=== PATIENT | male | born 1940 | race Caucasian/White ===

== ENCOUNTER 2021-07-29 12:45 | Inpatient (IN) | payer MEDICARE ==
[~2021-07-29] VITALS: Ht 165.1 cm; Wt 86.6 kg
[2021-07-29] MEDS ORDERED: DOCU100C36 PO (13:10)
[2021-07-29] MEDS ORDERED: ALBU8.5H8 IH (13:10)
[2021-07-29] MEDS ORDERED: METO25TA6 PO (13:10)
[2021-07-29] MEDS ORDERED: FURO40TA5 PO (13:10)
[2021-07-29] MEDS ORDERED: slow mag (13:10)
[2021-07-29] MEDS ORDERED: LEVO150T8 PO (13:10)
[2021-07-29] MEDS ORDERED: TRAM50TA2 PO (13:10)
[2021-07-29] MEDS ORDERED: LANS30CA56 PO (13:10)
[2021-07-29] MEDS ORDERED: FLUT1DIS28 IH (13:10)
[2021-07-29] MEDS ORDERED: POTA10CA43 PO (13:10)
[2021-07-29] MEDS ORDERED: DIAZ5TAB4 PO (13:10)
[2021-07-29] MEDS ORDERED: METO2.5T2 PO (13:10)
[2021-07-29] MEDS ORDERED: FURO80TA3 PO (13:10)
[2021-07-29] MEDS ORDERED: CALC600T35 PO (13:10)
[2021-07-29] MEDS ORDERED: ASPI81TA31 PO (13:10)
[2021-07-29] MEDS ORDERED: ROSU40TA PO (13:10)
[2021-07-29 13:20] LABS: HEMATOCRIT 41.2 % (36.7-47.1); MEAN CORPUSCULAR HEMOGLOBIN 28.5 uug (23.8-33.4); MEAN CORPUSCULAR VOLUME 87.9 fL (73.0-96.2); PLATELET COUNT (AUTO) 163 K/uL (152-348)
[2021-07-29 13:25] LABS: CARBON DIOXIDE 31 mmol/L (21-32); CHLORIDE 100 mmol/L (98-107); CREATININE 1.1 mg/dL (0.6-1.3); GLUCOSE 120 mg/dL (74-106); POTASSIUM 4.3 mmol/L (3.5-5.1); UREA NITROGEN, BLOOD 22 mg/dL (7-18)
[2021-07-29 13:38] LABS: ALANINE AMINOTRANSFERASE 35 U/L (16-63); ALKALINE PHOSPHATASE 110 U/L (50-136); ASPARTATE AMINOTRANSFERASE 31 U/L (15-37); BILIRUBIN,DIRECT 0.1 mg/dL (0.0-0.2); BILIRUBIN,TOTAL 0.4 mg/dL (0.2-1.0); TOTAL PROTEIN, SERUM 7.3 g/dL (6.4-8.2)
[2021-07-29] MEDS ORDERED: ALBUTEROL SULFATE 2.5 MG/3 ML NEBU NEB ONE (13:45)
[2021-07-29] MEDS ORDERED: IPRATROPIUM BROMIDE 0.5 MG/2.5 ML NEBU NEB ONE (13:45)
[2021-07-29] MEDS ORDERED: FUROSEMIDE 40 MG/4 ML VIAL IV ONE ×3 (13:45→21:00)
[2021-07-29] MEDS ORDERED: FUROSEMIDE 20 MG/2 ML VIAL ONE (13:46)
[2021-07-29] MEDS ORDERED: FUROSEMIDE 40 MG/4 ML VIAL ONE (13:46)
[2021-07-29] MEDS ORDERED: ALBUTEROL SULFATE 2.5 MG/3 ML NEBU ONE (13:49)
[2021-07-29] MEDS ORDERED: IPRATROPIUM BROMIDE 0.5 MG/2.5 ML NEBU ONE (13:49)
[2021-07-29] MEDS ORDERED: ALBUTEROL SULFATE 8 GM HFA.AER.AD IH PRN (14:00)
[2021-07-29] MEDS ORDERED: ONDANSETRON 4 MG/2 ML VIAL IV PRN ×2 (14:15→20:30)
[2021-07-29] MEDS ORDERED: REMEDY ESSENTIAL ZINC PASTE 113 GM TP PRN ×2 (14:15→20:30)
[2021-07-29] MEDS ORDERED: ACETAMINOPHEN 325 MG TABLET PO PRN ×2 (14:15→19:45)
[2021-07-29] MEDS ORDERED: MAGNESIUM HYDROXIDE 30 ML LIQUID UDC PO PRN ×2 (14:15→20:30)
--- NOTE | 2021-07-29 15:00 | NUR ---
Patient states she feels slightly short of breath. States he has CHF. Placed on a monitor.
--- NOTE | 2021-07-29 15:01 | NUR ---
Patient has urinated multiple times. RT tx done. Patient states she feels a bit better. He is aware of pending admission. Hand off report given toAline from Carlos CHAND
--- NOTE | 2021-07-29 15:15 | NUR ---
Admitted patient to telemetry unit with the diagnosis of acute CHF exacerbation. AO x 4. Sinus rhythm on the monitor with heart rate in the 70s. No complaints of chest pain. On room air saturating 98%. Blood pressure within normal. Patient is able to ambulate to restroom. Presents with bilateral leg wounds. Safety precautions in place. Admission orders carried out. Will continue to monitor patient.
[2021-07-29 15:25] VITALS: BP 132/65
[2021-07-29] MEDS: TRAMADOL HCL 50 MG TABLET PO PRN (16:48)
--- NOTE | 2021-07-29 16:57 | NUR ---
Nirmala German made aware of patient's troponin level of 118. No new orders noted at this time.
[2021-07-29] MEDS ORDERED: TEMAZEPAM 15 MG CAPSULE PO PRN ×2 (18:45→20:30)
[2021-07-29] MEDS ORDERED: ALBUTEROL SULFATE 2.5 MG/3 ML NEBU NEB PRN (20:15)
[2021-07-29 20:40] VITALS: BP 143/76
[2021-07-29] MEDS: METOPROLOL TARTRATE 25 MG TABLET PO SCH (20:49)
[2021-07-29] MEDS ORDERED: FLUTICASONE/SALMETEROL 250/50 INHALER IH SCH (21:00)
[2021-07-29] MEDS ORDERED: METOPROLOL TARTRATE 25 MG TABLET PO SCH (21:00)
--- NOTE | 2021-07-29 21:33 | NUR ---
Received Troponin result 167 .N.P Nirmala notified with new order received.
[2021-07-29] MEDS ORDERED: ASPIRIN 81 MG TAB.CHEW PO ONE (22:00)
--- NOTE | 2021-07-29 22:22 | NUR ---
EKG result received.Patient denies chest pain. No s/s of distress noted.N.P Nirmala notified.Aspirin given as ordered.Call light with in reach. Will continue to monitor.
[2021-07-30 00:04] VITALS: BP 114/58
[2021-07-30] MEDS: TRAMADOL HCL 50 MG TABLET PO PRN ×3 (02:01→18:34)
--- NOTE | 2021-07-30 03:01 | NUR ---
Received troponin result 185 .Patient asymptomatic. Relayed to . CHINYERE at this time. Will continue to monitor.
[2021-07-30 04:00] VITALS: BP 114/83
[2021-07-30 06:01] LABS: HEMATOCRIT 40.8 % (36.7-47.1); MEAN CORPUSCULAR HEMOGLOBIN 29.1 uug (23.8-33.4); PLATELET COUNT (AUTO) 168 K/uL (152-348)
[2021-07-30 06:13] LABS: CREATININE 1.1 mg/dL (0.6-1.3); MAGNESIUM 2.6 mg/dL (1.8-2.4); PHOSPHOROUS 3.9 mg/dL (2.5-4.9); POTASSIUM 3.7 mmol/L (3.5-5.1)
[2021-07-30] MEDS: LEVOTHYROXINE SODIUM 150 MCG TABLET PO SCH (06:17)
[2021-07-30] MEDS ORDERED: DIAZEPAM 5 MG TABLET PO SCH (09:00)
[2021-07-30] MEDS ORDERED: Medication Not On Formulary EA (Rosuvastatin Calcium (Crestor) 40 MG) PO SCH (09:00)
[2021-07-30] MEDS ORDERED: ASPIRIN 81 MG TAB.CHEW PO SCH (09:00)
[2021-07-30] MEDS ORDERED: LEVOTHYROXINE SODIUM 150 MCG TABLET PO SCH (09:00)
[2021-07-30] MEDS ORDERED: DOCUSATE SODIUM 100 MG CAPSULE PO SCH (09:00)
[2021-07-30] MEDS ORDERED: LANSOPRAZOLE 15 MG PO SCH (09:00)
[2021-07-30] MEDS ORDERED: CALCIUM CARBONATE 600 MG TABLET PO SCH (09:00)
[2021-07-30] MEDS: CALCIUM CARBONATE 600 MG TABLET PO SCH (09:20)
[2021-07-30] MEDS: ASPIRIN 81 MG TAB.CHEW PO SCH (09:20)
[2021-07-30] MEDS: DIAZEPAM 2 MG TABLET PO SCH (09:20)
[2021-07-30] MEDS: DOCUSATE SODIUM 100 MG CAPSULE PO SCH (09:20)
[2021-07-30] MEDS: METOPROLOL TARTRATE 25 MG TABLET PO SCH ×2 (09:20→20:37)
[2021-07-30] MEDS: FLUTICASONE/VILANTEROL 1 EACH BLST.W.DEV INH SCH (09:26)
[2021-07-30] MEDS ORDERED: ATORVASTATIN 10 MG TABLET PO SCH ×2 (10:00→21:00)
[2021-07-30] MEDS: FUROSEMIDE 40 MG/4 ML VIAL IV SCH ×2 (10:59→15:18)
[2021-07-30] MEDS: POTASSIUM CHLORIDE 20 MEQ TAB.PRT.SR PO SCH ×3 (10:59→13:26)
[2021-07-30] MEDS: ENOXAPARIN SODIUM 40 MG/0.4 ML DISP.SYRIN SQ SCH (11:03)
[2021-07-30 11:06] VITALS: BP 121/65
--- NOTE | 2021-07-30 13:45 | NUR ---
Patient sustained fall on his way out of the bathroom. Patient found sitting on floor. Patient verbalize that he is not injured. Patient assisted to bed. Vital signs within normal. No change in LOC. MD notified.
[2021-07-30 15:23] VITALS: BP 128/71
--- NOTE | 2021-07-30 19:00 | NUR ---
Patient stable throughout shift. Sinus rhythm on the monitor with PVCs and PACs. Saturating 98% on room air. Patient's at bedside. Patient denies chest pain. No evidence of respiratory distress. Will endorse to oncoming shift. Safety precautions in place.
--- NOTE | 2021-07-30 19:40 | NUR ---
Received pt sitting up on chair with by bedside. AOx4. Denies chest pain at this moment. No SOB or congestion noted. IV in [place] intact and patent. Ice pack given for back pain. Call lights within reach. Safety measures initiated.
[2021-07-30 20:59] VITALS: BP 132/53
[2021-07-31] MEDS: TRAMADOL HCL 50 MG TABLET PO PRN ×2 (00:12→11:36)
[2021-07-31 00:31] VITALS: BP 112/55
[2021-07-31 04:00] VITALS: BP 116/55
[2021-07-31 05:58] LABS: HEMATOCRIT 42.2 % (36.7-47.1); MEAN CORPUSCULAR HEMOGLOBIN 28.8 uug (23.8-33.4); MEAN CORPUSCULAR VOLUME 86.8 fL (73.0-96.2); PLATELET COUNT (AUTO) 167 K/uL (152-348)
[2021-07-31] MEDS: LEVOTHYROXINE SODIUM 150 MCG TABLET PO SCH (06:00)
[2021-07-31 06:10] LABS: ALANINE AMINOTRANSFERASE 32 U/L (16-63); ALKALINE PHOSPHATASE 99 U/L (50-136); ASPARTATE AMINOTRANSFERASE 32 U/L (15-37); BILIRUBIN,TOTAL 0.6 mg/dL (0.2-1.0); CARBON DIOXIDE 33 mmol/L (21-32); CHLORIDE 99 mmol/L (98-107); CREATININE 1.1 mg/dL (0.6-1.3); GLUCOSE 121 mg/dL (74-106); MAGNESIUM 2.5 mg/dL (1.8-2.4); PHOSPHOROUS 4.5 mg/dL (2.5-4.9); POTASSIUM 3.7 mmol/L (3.5-5.1); TOTAL PROTEIN, SERUM 7.4 g/dL (6.4-8.2); UREA NITROGEN, BLOOD 25 mg/dL (7-18)
--- NOTE | 2021-07-31 06:15 | NUR ---
Pt slept comfortably on chair. AOx4. On room air saturating at 95%. Sinus bradycardia with PVC's and HR 54-56 bpm. No signs of acute distress. Denies chest pain. No SOB noted. Tramadol given for pain. NPO at [address] Angio at H. Call light and belongings within reach. Safety measures maintained. Will endorse to am shift.
[2021-07-31] MEDS: DIAZEPAM 2 MG TABLET PO SCH (08:15)
[2021-07-31] MEDS: ASPIRIN 81 MG TAB.CHEW PO SCH (08:15)
[2021-07-31] MEDS: CALCIUM CARBONATE 600 MG TABLET PO SCH (08:15)
[2021-07-31] MEDS: DOCUSATE SODIUM 100 MG CAPSULE PO SCH (08:15)
[2021-07-31] MEDS: METOPROLOL TARTRATE 25 MG TABLET PO SCH (08:16)
[2021-07-31] MEDS: ENOXAPARIN SODIUM 40 MG/0.4 ML DISP.SYRIN SQ SCH (08:17)
[2021-07-31] MEDS: FLUTICASONE/VILANTEROL 1 EACH BLST.W.DEV INH SCH (08:21)
[2021-07-31 11:03] VITALS: BP 118/53
[2021-07-31] MEDS ORDERED: ASPI81TA31 PO (11:39)
[2021-07-31] MEDS ORDERED: FLUT1BLS INH (11:39)
[2021-07-31] MEDS ORDERED: METO25TA6 PO (11:39)
[2021-07-31] MEDS ORDERED: LEVO150T PO (11:39)
[2021-07-31] MEDS ORDERED: ALBU2.5V7 NEB (11:39)
--- NOTE | 2021-07-31 14:51 | NUR ---
Pt.was d/c home,denies any sob/or pain.went home with .No s/s of distress.
== END 2021-07-31 14:55 | disposition home or self-care (01) | DRG 280 ==
LOC: ER 12:47 → TELE3 14:32 → MEDSURG3 07-31 10:05
PROVIDERS: ADMIT Nurse Practitioner Acute Care; ATTEND Nurse Practitioner Acute Care
DX: I11.0 Hypertensive heart disease with heart failure (principal); I50.33 Acute on chronic diastolic (congestive) heart failure; I21.A1 Myocardial infarction type 2; J96.00 Acute respiratory failure, unspecified whether with hypoxia or hypercapnia; J44.9 Chronic obstructive pulmonary disease, unspecified; N40.0 Benign prostatic hyperplasia without lower urinary tract symptoms; G89.29 Other chronic pain; E66.9 Obesity, unspecified; Z68.38 Body mass index [BMI] 38.0-38.9, adult; M54.50 Low back pain, unspecified; R79.89 Other specified abnormal findings of blood chemistry; I08.0 Rheumatic disorders of both mitral and aortic valves; E03.9 Hypothyroidism, unspecified; M48.00 Spinal stenosis, site unspecified; E78.5 Hyperlipidemia, unspecified; I87.8 Other specified disorders of veins; Z79.890 Hormone replacement therapy; Z95.5 Presence of coronary angioplasty implant and graft; Z71.3 Dietary counseling and surveillance; Z87.898 Personal history of other specified conditions; Z79.899 Other long term (current) drug therapy; Z79.82 Long term (current) use of aspirin; Z88.0 Allergy status to penicillin
CPT/HCPCS: 36415; 71045; 83735; 84100; 84484; 85025; 85730; 93005; 93307; A4663; G0378; J1650; J1940; J3590

== ENCOUNTER 2023-07-04 13:26 | Inpatient (IN) | payer MEDICARE ==
[~2023-07-04] VITALS: Ht 167.6 cm; Wt 93.9 kg
[~2023-07-04 13:26] MED LIST: ALBU2.5V7 NEB; ALBU8.5H8 IH; ASPI81TA31 PO; CALC600T35 PO; DIAZ5TAB4 PO; DOCU100C36 PO; FLUT1BLS INH; FLUT1DIS28 IH; FURO40TA5 PO; FURO80TA3 PO; LANS30CA56 PO; LEVO150T PO; LEVO150T8 PO; METO2.5T2 PO; METO25TA6 PO; POTA10CA43 PO; ROSU40TA PO; TRAM50TA2 PO; slow mag
[2023-07-04] MEDS ORDERED: REMEDY ESSENTIAL ZINC PASTE 113 GM TOP PRN (17:45)
[2023-07-04 20:00] VITALS: BP 100/49; TEMP 100.1; O2SAT 98
[2023-07-04] MEDS ORDERED: ALPR0.5T8 PO (20:50)
[2023-07-04] MEDS ORDERED: FAMO10TA41 PO (20:50)
[2023-07-04] MEDS ORDERED: BUDE0.5A4 IH (20:50)
[2023-07-04] MEDS ORDERED: FURO80TA87 PO (20:50)
[2023-07-04] MEDS ORDERED: MELA5TAB20 PO (20:50)
[2023-07-04] MEDS ORDERED: ALBU2.5V38 IH (20:50)
[2023-07-04] MEDS ORDERED: ARFO15VI IH (20:50)
[2023-07-04] MEDS ORDERED: ENOX40DI SQ (20:50)
[2023-07-04] MEDS ORDERED: POLY17PO4 PO (20:50)
[2023-07-04] MEDS ORDERED: ONDA4AMP IJ (20:50)
[2023-07-04] MEDS ORDERED: SENN-18 PO (20:50)
[2023-07-04] MEDS ORDERED: ESCI10TA PO (20:50)
[2023-07-04] MEDS ORDERED: POTA-88 PO (20:50)
[2023-07-04] MEDS ORDERED: DOCU250C14 PO (20:50)
[2023-07-04] MEDS ORDERED: ACET325T53 PO (20:50)
[2023-07-04] MEDS ORDERED: ROSU20TA2 PO (20:50)
[2023-07-04] MEDS ORDERED: OXYC5TAB3 PO (20:50)
[2023-07-05 06:00] VITALS: BP 125/54; TEMP 98; O2SAT 97
[2023-07-05 07:49] LABS: BASOPHILS # (AUTO) 0.1 K/UL (0.0-0.2); BASOPHILS % (AUTO) 0.6 % (0.0-2.0); EOSINOPHILS # (AUTO) 0.1 K/uL (0.0-0.7); EOSINOPHILS % (AUTO) 0.9 % (0.0-7.0); HEMATOCRIT 23.4 % (36.7-47.1); HEMOGLOBIN 7.7 g/dL (12.5-16.3); LYMPHOCYTES # (AUTO) 3.9 K/uL (0.8-4.8); LYMPHOCYTES % (AUTO) 25.2 % (20.5-51.5); MEAN CORPUSCULAR HEMOGLOBIN 28.5 uug (23.8-33.4); MEAN CORPUSCULAR HGB CONC 33 g/dL (32.5-36.3); MEAN CORPUSCULAR VOLUME 86.5 fL (73.0-96.2); MONOCYTES # (AUTO) 1.3 K/uL (0.1-1.30); MONOCYTES % (AUTO) 8.7 % (0.0-11.0); NEUTROPHILS # (AUTO) 9.9 K/uL (1.8-8.9); NEUTROPHILS % (AUTO) 64.6 % (38.5-71.5); PLATELET COUNT (AUTO) 210 K/uL (152-348); RED BLOOD CELL COUNT(AUTO) 2.71 MIL/uL (4.06-5.63); WHITE BLOOD COUNT (AUTO) 15.4 K/uL (3.6-10.2)
[2023-07-05 07:56] LABS: DIFFERENTIAL COMMENT 1
[2023-07-05 08:09] LABS: CALCIUM 8.9 mg/dL (8.5-10.1); CARBON DIOXIDE 32 mmol/L (21-32); CHLORIDE 100 mmol/L (98-107); CREATININE 0.9 mg/dL (0.6-1.3); GLUCOSE 138 mg/dL (74-106); MAGNESIUM 2.6 mg/dL (1.8-2.4); PHOSPHOROUS 2.4 mg/dL (2.5-4.9); POTASSIUM 4.4 mmol/L (3.5-5.1); SODIUM SERUM 134 mmol/L (136-145); UREA NITROGEN, BLOOD 20 mg/dL (7-18)
[2023-07-05] MEDS ORDERED: ENOX30DI5 SQ (10:12)
[2023-07-05] MEDS ORDERED: FAMO20TA8 PO (10:16)
[2023-07-05] MEDS ORDERED: ONDANSETRON 4 MG/2 ML VIAL IV PRN (10:30)
[2023-07-05] MEDS ORDERED: MELATONIN 3 MG TABLET PO PRN (10:30)
[2023-07-05] MEDS ORDERED: ALBUTEROL SULFATE 2.5 MG/3 ML NEBU IH PRN (10:30)
[2023-07-05] MEDS: FUROSEMIDE 40 MG TABLET PO SCH (11:40)
[2023-07-05] MEDS: METOPROLOL TARTRATE 25 MG TABLET PO SCH (11:41)
[2023-07-05] MEDS: ASPIRIN 81 MG TAB.CHEW PO SCH (11:41)
[2023-07-05] MEDS: ESCITALOPRAM OXALATE 10 MG TABLET PO SCH (11:41)
[2023-07-05] MEDS: DOCUSATE SODIUM 250 MG CAPSULE PO SCH (11:41)
[2023-07-05] MEDS: ENOXAPARIN SODIUM 30 MG/0.3 ML DISP.SYRIN SQ SCH (11:44)
[2023-07-05] MEDS: ACETAMINOPHEN 325 MG TABLET PO PRN (12:33)
[2023-07-05] MEDS: FLUTICASONE/VILANTEROL 1 EACH BLST.W.DEV IH SCH (13:02)
[2023-07-05 14:35] VITALS: O2SAT 97
[2023-07-05 16:00] VITALS: BP 113/55; TEMP 98.3; O2SAT 97
[2023-07-05] MEDS: NEUTRA PHOS PACKET PO ONE (16:22)
[2023-07-05 16:56] LABS: *BILIRUBIN,URIN NEGATIVE (NEGATIVE); *BLOOD, URINE NEGATIVE (NEGATIVE); *CLARITY,URINE CLEAR (CLEAR); *COLOR,URINE YELLOW (YELLOW); *KETONES,URINE NEGATIVE (NEGATIVE); *PROTEIN,URINE NEGATIVE (NEGATIVE); *UROBILINOGEN,URINE 0.2 E.U./dl (NORMAL); LEUKOCYTE ESTERASE ,URINE TRACE (NEGATIVE); NITRITE, URINE NEGATIVE (NEGATIVE); UGLUCOSE NEGATIVE (NEGATIVE)
[2023-07-05] MEDS ORDERED: FLUTICASONE/SALMETEROL 250/50 INHALER IH SCH (17:00)
[2023-07-05 17:21] LABS: RBC,URINE 0-3 /HPF (0-3)
[2023-07-05 17:22] LABS: BACTERIA,URINE MODERATE /HPF (NONE SEEN); SQUAMOUS EPITHELIAL CELL,UR FEW /HPF (NONE SEEN); YEAST,URINE BUDDING YEAST /HPF (NONE SEEN)
[2023-07-05 20:00] VITALS: BP 104/45; TEMP 98.6; O2SAT 96
[2023-07-05] MEDS: ATORVASTATIN 40 MG TABLET PO SCH (20:46)
[2023-07-05] MEDS: SENNOSIDES 1 TABLET PO SCH (20:46)
[2023-07-05] MEDS ORDERED: Medication Not On Formulary EA (Rosuvastatin Calcium (Crestor) 20 MG) PO SCH (21:00)
[2023-07-05] MEDS ORDERED: BUDESONIDE 0.5 MG/2 ML NEBU IH SCH (21:00)
[2023-07-05 23:16] VITALS: O2SAT 97
[2023-07-06] MEDS: ALPRAZOLAM 0.5 MG TABLET PO PRN (00:27)
[2023-07-06 06:00] VITALS: BP 143/61; TEMP 97.7; O2SAT 99
[2023-07-06] MEDS: FAMOTIDINE 20 MG TABLET PO SCH (06:41)
[2023-07-06] MEDS: LEVOTHYROXINE SODIUM 150 MCG TABLET PO SCH (06:41)
[2023-07-06] MEDS: OXYCODONE HCL 5 MG TABLET PO PRN (06:46)
[2023-07-06 07:58] LABS: BASOPHILS # (AUTO) 0.1 K/UL (0.0-0.2); BASOPHILS % (AUTO) 0.6 % (0.0-2.0); EOSINOPHILS # (AUTO) 0.3 K/uL (0.0-0.7); EOSINOPHILS % (AUTO) 1.8 % (0.0-7.0); HEMATOCRIT 24.9 % (36.7-47.1); HEMOGLOBIN 8.2 g/dL (12.5-16.3); LYMPHOCYTES % (AUTO) 25.8 % (20.5-51.5); MEAN CORPUSCULAR HEMOGLOBIN 28.9 uug (23.8-33.4); MEAN CORPUSCULAR HGB CONC 33 g/dL (32.5-36.3); MEAN CORPUSCULAR VOLUME 87.6 fL (73.0-96.2); MONOCYTES # (AUTO) 1.1 K/uL (0.1-1.30); MONOCYTES % (AUTO) 7.3 % (0.0-11.0); NEUTROPHILS # (AUTO) 9.9 K/uL (1.8-8.9); NEUTROPHILS % (AUTO) 64.5 % (38.5-71.5); PLATELET COUNT (AUTO) 217 K/uL (152-348); RED BLOOD CELL COUNT(AUTO) 2.85 MIL/uL (4.06-5.63); RED CELL DISTRIBUTION WIDTH 19.2 % (12.1-16.2); WHITE BLOOD COUNT (AUTO) 15.4 K/uL (3.6-10.2)
[2023-07-06 08:00] VITALS: BP 145/64; TEMP 98.4; O2SAT 96
[2023-07-06 08:16] LABS: DIFFERENTIAL COMMENT 1
[2023-07-06 08:42] LABS: IRON, SERUM 30 ug/dL (50-175)
[2023-07-06] MEDS: MIRALAX 17 GM POWD.PACK PO SCH (09:00)
[2023-07-06 09:34] LABS: CALCIUM 8.8 mg/dL (8.5-10.1); CARBON DIOXIDE 32 mmol/L (21-32); CHLORIDE 101 mmol/L (98-107); CREATININE 0.8 mg/dL (0.6-1.3); FERRITIN 289 ng/mL (26-388); GLUCOSE 121 mg/dL (74-106); MAGNESIUM 2.5 mg/dL (1.8-2.4); PHOSPHOROUS 2.6 mg/dL (2.5-4.9); POTASSIUM 3.7 mmol/L (3.5-5.1); SODIUM SERUM 136 mmol/L (136-145); UREA NITROGEN, BLOOD 23 mg/dL (7-18)
[2023-07-06] MEDS ORDERED: FLUTICASONE/VILANTEROL 1 EACH BLST.W.DEV IH SCH (12:00)
[2023-07-06] MEDS: CIPROFLOXACIN HCL 250 MG TABLET PO SCH (14:30)
[2023-07-06 16:30] VITALS: BP 137/50; TEMP 98.9; O2SAT 97
[2023-07-06] MEDS: SOD FERRIC GLUC COMPLX/SUCROSE 125 MG in IV NORMAL SALINE 100 ML IV SCH (16:34)
[2023-07-06 17:31] VITALS: BP 110/78; TEMP 98.9; O2SAT 97
[2023-07-06 20:00] VITALS: BP 112/56; TEMP 98; O2SAT 96
[2023-07-07 06:00] VITALS: BP 131/65; TEMP 98.2; O2SAT 98
[2023-07-07 07:12] LABS: BASOPHILS # (AUTO) 0.3 K/UL (0.0-0.2); BASOPHILS % (AUTO) 1.7 % (0.0-2.0); EOSINOPHILS # (AUTO) 0.2 K/uL (0.0-0.7); EOSINOPHILS % (AUTO) 1.4 % (0.0-7.0); HEMATOCRIT 23.7 % (36.7-47.1); HEMOGLOBIN 7.9 g/dL (12.5-16.3); LYMPHOCYTES # (AUTO) 4.8 K/uL (0.8-4.8); LYMPHOCYTES % (AUTO) 27.8 % (20.5-51.5); MEAN CORPUSCULAR HGB CONC 33 g/dL (32.5-36.3); MEAN CORPUSCULAR VOLUME 87.3 fL (73.0-96.2); MONOCYTES # (AUTO) 1.2 K/uL (0.1-1.30); MONOCYTES % (AUTO) 7.1 % (0.0-11.0); NEUTROPHILS # (AUTO) 10.8 K/uL (1.8-8.9); PLATELET COUNT (AUTO) 237 K/uL (152-348); RED BLOOD CELL COUNT(AUTO) 2.72 MIL/uL (4.06-5.63); RED CELL DISTRIBUTION WIDTH 18.9 % (12.1-16.2); WHITE BLOOD COUNT (AUTO) 17.4 K/uL (3.6-10.2)
[2023-07-07 07:25] LABS: DIFFERENTIAL COMMENT 1
[2023-07-07 08:00] VITALS: BP 120/59; TEMP 98.3; O2SAT 98
[2023-07-07 08:03] LABS: CALCIUM 8.7 mg/dL (8.5-10.1); CARBON DIOXIDE 29 mmol/L (21-32); CHLORIDE 100 mmol/L (98-107); CREATININE 0.8 mg/dL (0.6-1.3); GLUCOSE 116 mg/dL (74-106); MAGNESIUM 2.4 mg/dL (1.8-2.4); PHOSPHOROUS 2.4 mg/dL (2.5-4.9); SODIUM SERUM 134 mmol/L (136-145); UREA NITROGEN, BLOOD 15 mg/dL (7-18)
[2023-07-07 08:04] LABS: POTASSIUM 4.4 mmol/L (3.5-5.1)
[2023-07-07] MEDS: NEUTRA PHOS PACKET PO ONE (16:08)
[2023-07-07 16:09] VITALS: BP 120/50; TEMP 98.6; O2SAT 95
[2023-07-07 20:15] VITALS: BP 140/53; TEMP 98.8
[2023-07-08 05:57] VITALS: BP 132/62; TEMP 98
[2023-07-08 07:04] LABS: BASOPHILS # (AUTO) 0.1 K/UL (0.0-0.2); BASOPHILS % (AUTO) 0.7 % (0.0-2.0); EOSINOPHILS # (AUTO) 0.4 K/uL (0.0-0.7); EOSINOPHILS % (AUTO) 2.4 % (0.0-7.0); HEMATOCRIT 24.1 % (36.7-47.1); LYMPHOCYTES # (AUTO) 4.8 K/uL (0.8-4.8); LYMPHOCYTES % (AUTO) 29.5 % (20.5-51.5); MEAN CORPUSCULAR HEMOGLOBIN 28.9 uug (23.8-33.4); MEAN CORPUSCULAR HGB CONC 33 g/dL (32.5-36.3); MEAN CORPUSCULAR VOLUME 87.1 fL (73.0-96.2); MONOCYTES # (AUTO) 1.3 K/uL (0.1-1.30); MONOCYTES % (AUTO) 7.9 % (0.0-11.0); NEUTROPHILS # (AUTO) 9.6 K/uL (1.8-8.9); NEUTROPHILS % (AUTO) 59.5 % (38.5-71.5); PLATELET COUNT (AUTO) 266 K/uL (152-348); RED BLOOD CELL COUNT(AUTO) 2.77 MIL/uL (4.06-5.63); WHITE BLOOD COUNT (AUTO) 16.2 K/uL (3.6-10.2)
[2023-07-08 07:08] LABS: DIFFERENTIAL COMMENT 1
[2023-07-08 07:10] LABS: CALCITRIOL VIT D,1,25 DIHYDROX 47.2 pg/mL (24.8-81.5)
[2023-07-08 07:54] LABS: CALCIUM 8.5 mg/dL (8.5-10.1); CARBON DIOXIDE 31 mmol/L (21-32); CHLORIDE 101 mmol/L (98-107); CREATININE 0.9 mg/dL (0.6-1.3); GLUCOSE 113 mg/dL (74-106); MAGNESIUM 2.2 mg/dL (1.8-2.4); PHOSPHOROUS 3.3 mg/dL (2.5-4.9); POTASSIUM 3.9 mmol/L (3.5-5.1); SODIUM SERUM 140 mmol/L (136-145); UREA NITROGEN, BLOOD 18 mg/dL (7-18)
[2023-07-08] MEDS: ARGININE/GLUTAMINE/CALCIUM BMB 1 EACH POWD.PACK PO SCH (09:34)
[2023-07-08 16:00] VITALS: BP 128/70; TEMP 97.8; O2SAT 95
[2023-07-08] MEDS ORDERED: levoFLOXacin 500 MG TABLET PO SCH (16:45)
[2023-07-08] MEDS: levoFLOXacin 750 MG TABLET PO SCH (17:54)
[2023-07-08 20:26] VITALS: BP 102/42; TEMP 98.2; O2SAT 96
[2023-07-09 04:55] VITALS: BP 124/59; TEMP 98.1; O2SAT 98
[2023-07-09 13:09] LABS: CARBON DIOXIDE 33 mmol/L (21-32); CHLORIDE 100 mmol/L (98-107); CREATININE 0.9 mg/dL (0.6-1.3); GLUCOSE 109 mg/dL (74-106); MAGNESIUM 2.3 mg/dL (1.8-2.4); PHOSPHOROUS 3.1 mg/dL (2.5-4.9); POTASSIUM 4.2 mmol/L (3.5-5.1); SODIUM SERUM 137 mmol/L (136-145); UREA NITROGEN, BLOOD 25 mg/dL (7-18)
[2023-07-09 13:28] LABS: BASOPHILS # (AUTO) 0.2 K/UL (0.0-0.2); BASOPHILS % (AUTO) 1.1 % (0.0-2.0); DIFFERENTIAL COMMENT 0; EOSINOPHILS # (AUTO) 0.2 K/uL (0.0-0.7); EOSINOPHILS % (AUTO) 1.4 % (0.0-7.0); HEMATOCRIT 25.6 % (36.7-47.1); HEMOGLOBIN 8.2 g/dL (12.5-16.3); LYMPHOCYTES # (AUTO) 4.7 K/uL (0.8-4.8); LYMPHOCYTES % (AUTO) 28.3 % (20.5-51.5); MEAN CORPUSCULAR HEMOGLOBIN 28.3 uug (23.8-33.4); MEAN CORPUSCULAR HGB CONC 32 g/dL (32.5-36.3); MEAN CORPUSCULAR VOLUME 88.1 fL (73.0-96.2); MONOCYTES # (AUTO) 1.1 K/uL (0.1-1.30); MONOCYTES % (AUTO) 6.6 % (0.0-11.0); NEUTROPHILS # (AUTO) 10.4 K/uL (1.8-8.9); NEUTROPHILS % (AUTO) 62.6 % (38.5-71.5); PLATELET COUNT (AUTO) 313 K/uL (152-348); RED BLOOD CELL COUNT(AUTO) 2.91 MIL/uL (4.06-5.63); RED CELL DISTRIBUTION WIDTH 19.4 % (12.1-16.2); WHITE BLOOD COUNT (AUTO) 16.6 K/uL (3.6-10.2)
[2023-07-09 15:48] VITALS: BP 109/62; TEMP 98.4; O2SAT 95
[2023-07-09 20:09] VITALS: BP 116/51; TEMP 100; O2SAT 96
[2023-07-10 04:10] VITALS: BP 122/55; TEMP 98; O2SAT 95
[2023-07-10 07:45] LABS: BASOPHILS # (AUTO) 0.1 K/UL (0.0-0.2); BASOPHILS % (AUTO) 0.7 % (0.0-2.0); EOSINOPHILS # (AUTO) 0.1 K/uL (0.0-0.7); EOSINOPHILS % (AUTO) 0.5 % (0.0-7.0); HEMOGLOBIN 8.2 g/dL (12.5-16.3); LYMPHOCYTES # (AUTO) 3.6 K/uL (0.8-4.8); LYMPHOCYTES % (AUTO) 21.9 % (20.5-51.5); MEAN CORPUSCULAR HEMOGLOBIN 28.7 uug (23.8-33.4); MEAN CORPUSCULAR HGB CONC 33 g/dL (32.5-36.3); MEAN CORPUSCULAR VOLUME 87.5 fL (73.0-96.2); NEUTROPHILS # (AUTO) 11.6 K/uL (1.8-8.9); NEUTROPHILS % (AUTO) 70.9 % (38.5-71.5); PLATELET COUNT (AUTO) 318 K/uL (152-348); RED BLOOD CELL COUNT(AUTO) 2.85 MIL/uL (4.06-5.63); RED CELL DISTRIBUTION WIDTH 19.9 % (12.1-16.2); WHITE BLOOD COUNT (AUTO) 16.4 K/uL (3.6-10.2)
[2023-07-10 08:03] LABS: CALCIUM 8.9 mg/dL (8.5-10.1); CARBON DIOXIDE 29 mmol/L (21-32); CHLORIDE 99 mmol/L (98-107); CREATININE 0.9 mg/dL (0.6-1.3); GLUCOSE 121 mg/dL (74-106); MAGNESIUM 2.3 mg/dL (1.8-2.4); PHOSPHOROUS 3.2 mg/dL (2.5-4.9); POTASSIUM 3.8 mmol/L (3.5-5.1); SODIUM SERUM 136 mmol/L (136-145); UREA NITROGEN, BLOOD 19 mg/dL (7-18)
[2023-07-10 08:04] LABS: DIFFERENTIAL COMMENT 1
[2023-07-10] MEDS: MINERAL OIL/PETROLATUM,WHITE 57 GM TUBE TOP SCH (12:17)
[2023-07-10 15:41] VITALS: BP 117/57; TEMP 98.2; O2SAT 98
[2023-07-10 19:25] VITALS: BP 115/51; TEMP 98.3; O2SAT 96
[2023-07-11 06:51] VITALS: BP 111/51; TEMP 97.3
[2023-07-11 09:19] LABS: BASOPHILS # (AUTO) 0.1 K/UL (0.0-0.2); BASOPHILS % (AUTO) 0.5 % (0.0-2.0); EOSINOPHILS % (AUTO) 0.3 % (0.0-7.0); HEMATOCRIT 25.3 % (36.7-47.1); HEMOGLOBIN 8.2 g/dL (12.5-16.3); LYMPHOCYTES # (AUTO) 2.9 K/uL (0.8-4.8); LYMPHOCYTES % (AUTO) 19.2 % (20.5-51.5); MEAN CORPUSCULAR HEMOGLOBIN 28.3 uug (23.8-33.4); MEAN CORPUSCULAR HGB CONC 33 g/dL (32.5-36.3); MEAN CORPUSCULAR VOLUME 87.1 fL (73.0-96.2); MONOCYTES # (AUTO) 1.1 K/uL (0.1-1.30); MONOCYTES % (AUTO) 7.3 % (0.0-11.0); NEUTROPHILS # (AUTO) 11.1 K/uL (1.8-8.9); NEUTROPHILS % (AUTO) 72.7 % (38.5-71.5); PLATELET COUNT (AUTO) 313 K/uL (152-348); RED CELL DISTRIBUTION WIDTH 19.9 % (12.1-16.2); WHITE BLOOD COUNT (AUTO) 15.2 K/uL (3.6-10.2)
[2023-07-11 09:23] LABS: DIFFERENTIAL COMMENT 1
[2023-07-11 09:31] LABS: CALCIUM 8.9 mg/dL (8.5-10.1); CARBON DIOXIDE 31 mmol/L (21-32); CHLORIDE 99 mmol/L (98-107); CREATININE 0.9 mg/dL (0.6-1.3); GLUCOSE 143 mg/dL (74-106); MAGNESIUM 2.4 mg/dL (1.8-2.4); PHOSPHOROUS 2.6 mg/dL (2.5-4.9); POTASSIUM 3.7 mmol/L (3.5-5.1); SODIUM SERUM 136 mmol/L (136-145); UREA NITROGEN, BLOOD 18 mg/dL (7-18)
[2023-07-11 15:47] VITALS: BP 123/56; TEMP 98.8; O2SAT 95
[2023-07-11] MEDS: ONDANSETRON 4 MG/2 ML VIAL IV PRN (19:38)
[2023-07-11 20:22] VITALS: BP 112/55; TEMP 98.3; O2SAT 96
[2023-07-12 04:36] VITALS: BP 125/58; TEMP 98.2; O2SAT 96
[2023-07-12 06:46] LABS: BASOPHILS # (AUTO) 0.1 K/UL (0.0-0.2); BASOPHILS % (AUTO) 0.7 % (0.0-2.0); EOSINOPHILS % (AUTO) 0.3 % (0.0-7.0); HEMATOCRIT 24.7 % (36.7-47.1); HEMOGLOBIN 8.2 g/dL (12.5-16.3); LYMPHOCYTES # (AUTO) 2.7 K/uL (0.8-4.8); LYMPHOCYTES % (AUTO) 20.5 % (20.5-51.5); MEAN CORPUSCULAR HEMOGLOBIN 28.7 uug (23.8-33.4); MEAN CORPUSCULAR HGB CONC 33 g/dL (32.5-36.3); MONOCYTES # (AUTO) 0.9 K/uL (0.1-1.30); MONOCYTES % (AUTO) 7.1 % (0.0-11.0); NEUTROPHILS # (AUTO) 9.5 K/uL (1.8-8.9); NEUTROPHILS % (AUTO) 71.4 % (38.5-71.5); PLATELET COUNT (AUTO) 315 K/uL (152-348); RED BLOOD CELL COUNT(AUTO) 2.84 MIL/uL (4.06-5.63); RED CELL DISTRIBUTION WIDTH 19.6 % (12.1-16.2); WHITE BLOOD COUNT (AUTO) 13.3 K/uL (3.6-10.2)
[2023-07-12 07:10] LABS: DIFFERENTIAL COMMENT 1
[2023-07-12 07:16] LABS: CARBON DIOXIDE 32 mmol/L (21-32); CHLORIDE 102 mmol/L (98-107); CREATININE 0.9 mg/dL (0.6-1.3); GLUCOSE 118 mg/dL (74-106); MAGNESIUM 2.6 mg/dL (1.8-2.4); PHOSPHOROUS 3.4 mg/dL (2.5-4.9); POTASSIUM 3.7 mmol/L (3.5-5.1); SODIUM SERUM 139 mmol/L (136-145); UREA NITROGEN, BLOOD 20 mg/dL (7-18)
[2023-07-12 11:53] VITALS: BP 107/42; TEMP 98.9; O2SAT 93
[2023-07-12 16:00] VITALS: BP 120/53; TEMP 98.3; O2SAT 95
[2023-07-12 20:18] VITALS: BP 113/52; TEMP 97.7; O2SAT 96
[2023-07-13 04:51] VITALS: BP 132/57; TEMP 98.3; O2SAT 96
[2023-07-13] MEDS: ENOXAPARIN SODIUM 30 MG/0.3 ML DISP.SYRIN SQ SCH (08:48)
[2023-07-13 16:17] VITALS: BP 94/58; TEMP 98.7; O2SAT 98
[2023-07-13 20:00] VITALS: BP 123/50; TEMP 98.3; O2SAT 96
[2023-07-14 06:00] VITALS: BP 120/74; TEMP 98.1; O2SAT 96
[2023-07-14 08:05] LABS: BASOPHILS # (AUTO) 0.1 K/UL (0.0-0.2); BASOPHILS % (AUTO) 0.6 % (0.0-2.0); EOSINOPHILS # (AUTO) 0.1 K/uL (0.0-0.7); EOSINOPHILS % (AUTO) 0.7 % (0.0-7.0); HEMATOCRIT 26.4 % (36.7-47.1); HEMOGLOBIN 8.7 g/dL (12.5-16.3); LYMPHOCYTES # (AUTO) 2.6 K/uL (0.8-4.8); LYMPHOCYTES % (AUTO) 21.7 % (20.5-51.5); MEAN CORPUSCULAR HEMOGLOBIN 28.9 uug (23.8-33.4); MEAN CORPUSCULAR HGB CONC 33 g/dL (32.5-36.3); MEAN CORPUSCULAR VOLUME 87.4 fL (73.0-96.2); MONOCYTES % (AUTO) 8.7 % (0.0-11.0); NEUTROPHILS # (AUTO) 8.1 K/uL (1.8-8.9); NEUTROPHILS % (AUTO) 68.3 % (38.5-71.5); PLATELET COUNT (AUTO) 310 K/uL (152-348); RED BLOOD CELL COUNT(AUTO) 3.02 MIL/uL (4.06-5.63); WHITE BLOOD COUNT (AUTO) 11.8 K/uL (3.6-10.2)
[2023-07-14 08:28] LABS: DIFFERENTIAL COMMENT 1
[2023-07-14 08:29] LABS: CARBON DIOXIDE 34 mmol/L (21-32); CHLORIDE 102 mmol/L (98-107); CREATININE 0.8 mg/dL (0.6-1.3); GLUCOSE 114 mg/dL (74-106); MAGNESIUM 2.6 mg/dL (1.8-2.4); PHOSPHOROUS 2.7 mg/dL (2.5-4.9); POTASSIUM 3.5 mmol/L (3.5-5.1); SODIUM SERUM 140 mmol/L (136-145); UREA NITROGEN, BLOOD 23 mg/dL (7-18)
[2023-07-14 16:55] VITALS: BP 113/72; TEMP 98.3; O2SAT 92
[2023-07-14 20:00] VITALS: BP 119/60; TEMP 97.6; O2SAT 96
[2023-07-15 06:00] VITALS: BP 144/61; TEMP 98; O2SAT 100
[2023-07-15 15:47] VITALS: BP 137/63; TEMP 98.6; O2SAT 96
[2023-07-15 22:05] VITALS: BP 165/55; TEMP 97.8; O2SAT 91
[2023-07-16 05:45] VITALS: BP 117/62; TEMP 98; O2SAT 100
[2023-07-16 06:39] LABS: BASOPHILS # (AUTO) 0.1 K/UL (0.0-0.2); BASOPHILS % (AUTO) 0.7 % (0.0-2.0); EOSINOPHILS # (AUTO) 0.2 K/uL (0.0-0.7); EOSINOPHILS % (AUTO) 1.2 % (0.0-7.0); HEMATOCRIT 27.7 % (36.7-47.1); HEMOGLOBIN 9.1 g/dL (12.5-16.3); LYMPHOCYTES % (AUTO) 23.1 % (20.5-51.5); MEAN CORPUSCULAR HEMOGLOBIN 28.8 uug (23.8-33.4); MEAN CORPUSCULAR HGB CONC 33 g/dL (32.5-36.3); MEAN CORPUSCULAR VOLUME 87.6 fL (73.0-96.2); MONOCYTES # (AUTO) 0.9 K/uL (0.1-1.30); MONOCYTES % (AUTO) 6.9 % (0.0-11.0); NEUTROPHILS # (AUTO) 8.8 K/uL (1.8-8.9); NEUTROPHILS % (AUTO) 68.1 % (38.5-71.5); PLATELET COUNT (AUTO) 272 K/uL (152-348); RED BLOOD CELL COUNT(AUTO) 3.16 MIL/uL (4.06-5.63); RED CELL DISTRIBUTION WIDTH 19.7 % (12.1-16.2); WHITE BLOOD COUNT (AUTO) 12.9 K/uL (3.6-10.2)
[2023-07-16 06:54] LABS: DIFFERENTIAL COMMENT 1
[2023-07-16 06:57] LABS: CALCIUM 8.8 mg/dL (8.5-10.1); CREATININE 0.8 mg/dL (0.6-1.3); MAGNESIUM 2.5 mg/dL (1.8-2.4); PHOSPHOROUS 2.8 mg/dL (2.5-4.9); POTASSIUM 3.7 mmol/L (3.5-5.1)
[2023-07-16 08:00] VITALS: BP 130/61; TEMP 97.6; O2SAT 98
[2023-07-16 16:00] VITALS: BP 123/54; TEMP 97.2; O2SAT 98
[2023-07-16 20:22] VITALS: BP 126/58; TEMP 98.9; O2SAT 97
[2023-07-17 04:26] VITALS: BP 122/59; TEMP 98; O2SAT 94
[2023-07-17 07:01] LABS: BASOPHILS # (AUTO) 0.1 K/UL (0.0-0.2); BASOPHILS % (AUTO) 1.1 % (0.0-2.0); EOSINOPHILS # (AUTO) 0.1 K/uL (0.0-0.7); HEMATOCRIT 27.6 % (36.7-47.1); LYMPHOCYTES % (AUTO) 22.4 % (20.5-51.5); MEAN CORPUSCULAR HEMOGLOBIN 28.6 uug (23.8-33.4); MEAN CORPUSCULAR HGB CONC 33 g/dL (32.5-36.3); MEAN CORPUSCULAR VOLUME 87.5 fL (73.0-96.2); MONOCYTES # (AUTO) 1.1 K/uL (0.1-1.30); MONOCYTES % (AUTO) 8.1 % (0.0-11.0); NEUTROPHILS # (AUTO) 8.9 K/uL (1.8-8.9); NEUTROPHILS % (AUTO) 67.4 % (38.5-71.5); PLATELET COUNT (AUTO) 249 K/uL (152-348); RED BLOOD CELL COUNT(AUTO) 3.15 MIL/uL (4.06-5.63); RED CELL DISTRIBUTION WIDTH 19.2 % (12.1-16.2); WHITE BLOOD COUNT (AUTO) 13.2 K/uL (3.6-10.2)
[2023-07-17 07:24] LABS: CALCIUM 8.9 mg/dL (8.5-10.1); CARBON DIOXIDE 31 mmol/L (21-32); CHLORIDE 100 mmol/L (98-107); CREATININE 0.7 mg/dL (0.6-1.3); GLUCOSE 120 mg/dL (74-106); MAGNESIUM 2.5 mg/dL (1.8-2.4); PHOSPHOROUS 2.9 mg/dL (2.5-4.9); POTASSIUM 3.8 mmol/L (3.5-5.1); SODIUM SERUM 138 mmol/L (136-145); UREA NITROGEN, BLOOD 22 mg/dL (7-18)
[2023-07-17 07:46] LABS: DIFFERENTIAL COMMENT 1
[2023-07-17 16:07] VITALS: BP 168/42; TEMP 100.3; O2SAT 93
[2023-07-17] MEDS: FUROSEMIDE 40 MG/4 ML VIAL IV ONE (16:38)
[2023-07-17 17:10] LABS: *BILIRUBIN,URIN NEGATIVE (NEGATIVE); *BLOOD, URINE NEGATIVE (NEGATIVE); *CLARITY,URINE CLEAR (CLEAR); *COLOR,URINE YELLOW (YELLOW); *KETONES,URINE NEGATIVE (NEGATIVE); *PROTEIN,URINE NEGATIVE (NEGATIVE); *UROBILINOGEN,URINE 0.2 E.U./dl (NORMAL); LEUKOCYTE ESTERASE ,URINE TRACE (NEGATIVE); NITRITE, URINE NEGATIVE (NEGATIVE); UGLUCOSE NEGATIVE (NEGATIVE)
[2023-07-17 17:25] LABS: BACTERIA,URINE MODERATE /HPF (NONE SEEN); SQUAMOUS EPITHELIAL CELL,UR FEW /HPF (NONE SEEN); WBC,URINE 0-3 /HPF (0-3)
[2023-07-17 20:27] VITALS: BP 124/54; TEMP 98.8; O2SAT 93
[2023-07-17] MEDS ORDERED: CEFEPIME HCL 1 G VIAL ONE (23:44)
[2023-07-17] MEDS: CEFEPIME HCL 1 G in IV DEXTROSE 5% 50 ML IV SCH (23:54)
[2023-07-18 04:05] VITALS: BP 115/51; TEMP 98.8; O2SAT 93
[2023-07-18] MEDS: HYDROMORPHONE 1 MG/1 ML DISP.SYRIN IV PRN (04:57)
[2023-07-18] MEDS ORDERED: HYDROMORPHONE 1 MG/1 ML DISP.SYRIN IV ONE (05:00)
[2023-07-18 06:56] LABS: BASOPHILS # (AUTO) 0.1 K/UL (0.0-0.2); BASOPHILS % (AUTO) 0.4 % (0.0-2.0); EOSINOPHILS # (AUTO) 0.1 K/uL (0.0-0.7); EOSINOPHILS % (AUTO) 0.5 % (0.0-7.0); HEMATOCRIT 28.1 % (36.7-47.1); HEMOGLOBIN 9.2 g/dL (12.5-16.3); LYMPHOCYTES # (AUTO) 2.9 K/uL (0.8-4.8); LYMPHOCYTES % (AUTO) 22.9 % (20.5-51.5); MEAN CORPUSCULAR HEMOGLOBIN 28.3 uug (23.8-33.4); MEAN CORPUSCULAR HGB CONC 33 g/dL (32.5-36.3); MEAN CORPUSCULAR VOLUME 86.5 fL (73.0-96.2); MONOCYTES # (AUTO) 1.1 K/uL (0.1-1.30); MONOCYTES % (AUTO) 8.7 % (0.0-11.0); NEUTROPHILS # (AUTO) 8.6 K/uL (1.8-8.9); NEUTROPHILS % (AUTO) 67.5 % (38.5-71.5); PLATELET COUNT (AUTO) 244 K/uL (152-348); RED BLOOD CELL COUNT(AUTO) 3.25 MIL/uL (4.06-5.63); WHITE BLOOD COUNT (AUTO) 12.8 K/uL (3.6-10.2)
[2023-07-18 07:13] LABS: CARBON DIOXIDE 32 mmol/L (21-32); CHLORIDE 98 mmol/L (98-107); CREATININE 0.8 mg/dL (0.6-1.3); GLUCOSE 118 mg/dL (74-106); MAGNESIUM 2.4 mg/dL (1.8-2.4); PHOSPHOROUS 3.3 mg/dL (2.5-4.9); POTASSIUM 3.6 mmol/L (3.5-5.1); SODIUM SERUM 135 mmol/L (136-145); UREA NITROGEN, BLOOD 18 mg/dL (7-18)
[2023-07-18 07:35] LABS: DIFFERENTIAL COMMENT 1
[2023-07-18 10:42] VITALS: BP 110/51; TEMP 98.8; O2SAT 92
[2023-07-18] MEDS: TRIAMCINOLONE ACETONIDE 40 MG/1 ML VIAL IM ONE (13:40)
[2023-07-18] MEDS: LIDOCAINE HCL 1% 20 ML VIAL IJ ONE (13:40)
[2023-07-18 16:00] VITALS: BP 166/58; TEMP 98; O2SAT 97
[2023-07-18 20:00] VITALS: BP 117/56; TEMP 98.2; O2SAT 95
[2023-07-19 06:00] VITALS: BP 137/75; TEMP 97.2; O2SAT 98
[2023-07-19 16:06] VITALS: BP 116/55; TEMP 98.7; O2SAT 98
== END 2023-07-19 15:45 | DRG 559 ==
PROVIDERS: ADMIT Physical Medicine & Rehabilitation Pain Medicine; ATTEND Physical Medicine & Rehabilitation Pain Medicine
DX: S72.402D Unspecified fracture of lower end of left femur, subsequent encounter for closed fracture with routine healing (principal); J69.0 Pneumonitis due to inhalation of food and vomit; J44.0 Chronic obstructive pulmonary disease with (acute) lower respiratory infection; N39.0 Urinary tract infection, site not specified; J98.11 Atelectasis; M97.12XD Periprosthetic fracture around internal prosthetic left knee joint, subsequent encounter; W18.30XD Fall on same level, unspecified, subsequent encounter; J45.909 Unspecified asthma, uncomplicated; I50.9 Heart failure, unspecified; I11.0 Hypertensive heart disease with heart failure; E03.9 Hypothyroidism, unspecified; D50.9 Iron deficiency anemia, unspecified; E66.9 Obesity, unspecified; K59.00 Constipation, unspecified; Z88.0 Allergy status to penicillin; F41.9 Anxiety disorder, unspecified; F32.A Depression, unspecified
CPT/HCPCS: 36415; 71045; 73502; 74018; 82652; 83550; 83735; 83970; 84100; 85025; 87040; 97535-GO-CO; A6209; A6213; J0692; J1170; J1650; J1940; J2405; J2916; J3301; J3490